=== PATIENT | female | born 1995 | race Caucasian/White ===

== ENCOUNTER 2022-05-11 16:52 | Emergency (ER) | payer BC ==
[~2022-05-11] VITALS: Ht 154.9 cm; Wt 290.0 kg
[2022-05-11 17:37] VITALS: BP 141/91
[2022-05-11] MEDS ORDERED: METH4TAB81 PO (18:13)
[2022-05-11] MEDS ORDERED: TRIA15CR61 TOP (18:13)
== END 2022-05-11 18:27 | disposition home or self-care (01) ==
LOC: ER 16:53
DX: L23.9 Allergic contact dermatitis, unspecified cause (principal); F41.9 Anxiety disorder, unspecified; Z88.0 Allergy status to penicillin; Z79.899 Other long term (current) drug therapy
CPT/HCPCS: 99283